=== PATIENT | male | born 1965 | race Caucasian/White ===

== ENCOUNTER 2023-04-18 19:39 | Emergency (ER) | payer OTHER, SELFPAY ==
[2023-04-18 19:39] VITALS: BMI 19.3
[2023-04-18 19:43] VITALS: BP 178/102
[2023-04-18] MEDS: TORADOL 30 MG IM (20:47)
[2023-04-18] MEDS: FLEXERIL 10 MG PO (20:47)
--- NOTE | 2023-04-18 21:09 | ED.GENMED ---
History of Present Illness
General
Chief Complaint: Musculo-Skeletal Complaint
Time Seen by Provider: 04/18/23 20:06
Travel History
Have you had any contact with someone who has COVID-19?: No
Do you have any symptoms of coronavirus? Fever > 100 degrees, chills, cough, shortness of breath, sore throat, loss of taste or smell, muscle aches, or headache?: No
History of Present Illness
History of Present Illness:
57-year-old male presents the emergency department for evaluation of bilateral neck pain developing this morning. He states that 3 to 4 days ago he struck his head on a piece of equipment, did not have any pain until this morning. Feels profound
stiffness. No radiating symptoms into the upper extremities, denies any paresthesias. No chest pain or shortness of breath. Took Advil without significant improvement
Review of Systems
Review of Systems
Allergies reviewed?: Yes
All Other Systems: ROS reviewed and negative except as documented in HPI and ROS
Phy Exam
Physical Exam
Physical Exam:
GEN: Well appearing, NAD, WDWN
HEENT: Oral mucosa moist, no scleral icterus
Cardiac: Regular rate
Lung: No respiratory distress, no tachypnea
MSK: No gross deformity or injuries. No midline cervical spine tenderness. Positive bilateral paraspinous muscular tenderness. Range of motion profoundly limited of the cervical spine due to pain. Bilateral upper extremity strength and sensation
is intact in all boone and symmetric
Skin: Good color, no pallor or jaundice, no rashes
Neuro: AO x3, moves all extremities freely
Psych: Calm, cooperative
Course
Orders/Labs/Results
Orders:
Orders
04/18/23 20:38
Cyclobenzaprine HCl [Flexeril] 10 mg PO NOW STA
Ketorolac [Toradol] 30 mg IM NOW STA
CR Cervical Spine 2 or 3 Vw Urgent
Reason For Exam: neck pain
Vital Signs
Initial and Last Documented VS:
Initial Vital Signs
Temp Pulse Resp BP Pulse Ox
98 F 78 22 178/102 100
04/18/23 19:43 04/18/23 19:43 04/18/23 19:43 04/18/23 19:43 04/18/23 19:43
Last Documented Vital Signs
Temp Pulse Resp BP Pulse Ox
98 F 78 22 178/102 100
04/18/23 19:43 04/18/23 19:43 04/18/23 19:43 04/18/23 19:43 04/18/23 19:43
MDM/Problems Addressed
MDM/Problems Addressed:
Patient's pain improved with supportive treatment emergency department. Due to the antecedent trauma x-rays were obtained which showed no evidence for cervical spine bony abnormality. His symptoms did improve, likely soft tissue injury. Discussed
supportive care
*Critical Care Note
Total Time (30-74mins, 75-104mins- exclusive of procedures): Not Applicable
ED Attending Note
-
Portions of this chart may have been created with voice recognition software.� Occasional wrong word or��sound alike� substitutions may have occurred due to the inherent limitations of voice recognition software.
Discharge Plan
Departure
Patient Disposition: Home (Routine Discharge)
Date of Disposition: 04/18/23
Time of Disposition: 22:45
Patient with high blood pressure during this ER visit?: No
Discharge Problem:
Cervical muscle strain
Instructions: Neck Sprain (DC)
Prescriptions:
New
methocarbamol 750 mg tablet
750 - 1,500 mg PO Q8H PRN (Reason: muscle spasm) Qty: 30 0RF
diclofenac sodium 75 mg tablet,delayed release (DR/EC)
75 mg PO BID PRN (Reason: Pain) Qty: 20 0RF
Referrals:
Shanda Cortez CRNP [Family Provider] -
Interventions
Interventions:
*Risk Screen - Suicide Last Done: 04/18/23 19:43
*General Assessment Last Done: 04/18/23 22:58
*Neglect/Abuse Screening Last Done: 04/18/23 19:43
ED- Fall Risk Assessment Last Done: 04/18/23 20:17
*ED COVID-19 Vaccine History Last Done: 04/18/23 22:58
*Nursing Disposition Last Done: 04/18/23 22:48
ED-Musculoskeletal Assessment Last Done: 04/18/23 20:17
Discharge Date and Time
Discharge Date/Time: 04/18/23 23:00
== END 2023-04-18 23:00 | disposition home or self-care (01) ==
LOC: EMR 19:39
PROVIDERS: EMERGENCY PHYSICIAN Emergency Medicine; FAMILY PHYSICIAN Nurse Practitioner Adult Health
DX: S16.1XXA Strain of muscle, fascia and tendon at neck level, initial encounter (principal); W22.8XXA Striking against or struck by other objects, initial encounter
CPT/HCPCS: 99284; 96372; 72040

== ENCOUNTER → 2023-04-24 08:06 | Outpatient (REF) | payer OTHER, SELFPAY | LOC: RCS 08:06 | PROVIDERS: ATTENDING PHYSICIAN Nurse Practitioner Adult Health | DX: I51.7 Cardiomegaly (principal) | CPT/HCPCS: 93306 ==

== ENCOUNTER 2023-06-28 19:17 | Emergency (ER) | payer OTHER, SELFPAY ==
[2023-06-28 19:24] VITALS: BP 136/80
[2023-06-28 19:51] LABS: % Basophils 0.5 % (0-2); % Eosinophils 2.7 % (0-6); % Immature Granulocytes 0.2 % (0-0.5); % Lymphocytes 24.5 % (20.5-51.1); % Monocytes 7.2 % (1.7-9.3); % Neutrophils 64.9 % (42.2-75.2); Absolute Eosinophils 0.2 10^3/uL (0-0.7); Absolute Lymphocytes 2.2 10^3/uL (1.2-3.4); Absolute Monocytes 0.6 10^3/uL (0.1-0.6); Absolute Neutrophils 5.7 10^3/uL (1.4-6.5); Hematocrit 42.4 % (39.0-52.0); Mean Corpuscular Volume 87.8 fL (80.0-94.0); Mean Platelet Volume 10.5 fL (7.4-10.4); Nucleated Red Blood Cells % 0 % (-); Platelet Count 238 10^3/uL (130-400); Red Blood Cell Count 4.83 10^6/uL (4.70-6.10); Red Cell Dist. Width 13.4 % (11.5-14.5); White Blood Cell Count 8.8 10^3/uL (4.8-10.8)
[2023-06-28 20:06] LABS: ALT (SGPT) 29 U/L (0-50); AST (SGOT) 40 U/L (17-59); Albumin 4.7 g/dl (3.5-5.0); Alkaline Phosphatase 56 U/L (38-126); Blood Urea Nitrogen 23 mg/dl (9-20); Calcium 10.3 mg/dl (8.4-10.2); Carbon Dioxide 27 mmol/L (22-30); Chloride 103 mmol/L (98-107); Glucose 89 mg/dl (70-99); Potassium 4.7 mmol/L (3.5-5.1); Sodium 136 mmol/L (135-145); Total Bilirubin 0.6 mg/dl (0.2-1.3); Total Protein 7.3 g/dl (6.3-8.2); eGFR > 60.00
--- NOTE | 2023-06-28 23:56 | ED.GENMED ---
History of Present Illness
General
Chief Complaint: Rectal Bleeding
Source: patient
Exam Limitations: none
Time Seen by Provider: 06/28/23 23:25
Travel History
Have you had any contact with someone who has COVID-19?: No
Do you have any symptoms of coronavirus? Fever > 100 degrees, chills, cough, shortness of breath, sore throat, loss of taste or smell, muscle aches, or headache?: No
History of Present Illness
History of Present Illness:
This is a 57 year old male that comes in with c/o black stool. States that he saw Dr. Kang on Wednesday. States that he is scheduled for a colonoscopy and endoscope in August. States that he has been taking Ibuprofen 1 tablet in the morning and one
at night for neck pain for several months. States that he was told to take Prilosec but he hasn't started this yet. Told that if he had any black stool to come to the ER. States that he got up at 2:30am to have a BM and it started out normal and
then he had some black stool. States that he has a slight headache. Denies any fever, chills, chest pain SOB, abd pain, nausea, vomiting, diarrhea, dizziness, urinary burning.
Past History
Past History
ED Past Medical History: None; Negative Asthma, HTN or Hypercholesterolemia
ED Past Surgical History: Orthopedic (Left shoulder surgery, ORIG right hand)
Social History
Tobacco: Non-smoker
Alcohol: Occasional
Personal:
Living: with family
Employment: Employed
Review of Systems
Review of Systems
All Other Systems: ROS reviewed and negative except as documented in HPI and ROS
Constitutional: Reports no symptoms; Denies fever or chills
EENT: Reports no symptoms
Respiratory: Reports no symptoms; Denies cough or trouble breathing
Cardiac: Reports no symptoms; Denies chest pain
ABD/GI: Reports black stools; Denies abdominal pain, nausea, vomiting or diarrhea
: Reports no symptoms; Denies dysuria, frequency or urgency
Musculoskeletal: Reports no symptoms
Skin: Reports no symptoms
Neurological: Reports headache (Slight); Denies dizzy
Psychiatric: Reports no symptoms
Phy Exam
General Physical Exam
General Presentation: well appearing and no apparent distress
General age: appears stated age
General Skin: warm and dry
General Habitus: normal
General Mental: alert
General Hydration: appears well hydrated
ENT Exam
ENT Exam: TM's normal, pharynx normal and neck supple
Eye Exam
Eye Exam: EOMI
Cardiovascular Exam
Cardiovascular Exam: regular rate/rhythm, no edema, no murmur and normal peripheral pulses
Pulmonary Exam
Pulmonary Exam: lungs clear, no respiratory distress, no rales, chest non tender, no crackles, no rhonchi, no wheezing and no cough
Gastrointestinal Exam
Gastrointestinal Exam: normal bowel sounds, non tender, soft, no organomegaly, no pulsatile mass, non distended and other (Rectal exam negative, no stool in the rectal valt)
Musculoskeletal Exam
Musculoskeletal Exam: full ROM and no edema
Skin Exam
Skin Exam: normal color, warm/dry, no rash and no petechia
Course
Orders/Labs/Results
Orders:
Orders
06/28/23 19:36
CMP [Comprehensive Metabolic Panel] Urgent
Complete Blood Count/With Diff Urgent
Abnormal Lab Results
06/28/23
19:36
MPV 10.5 H fL
(7.4-10.4)
BUN 23 H mg/dl
(9-20)
Calcium 10.3 H mg/dl
(8.4-10.2)
06/28/23 19:36
06/28/23 19:36
Dehydration. Otherwise normal labs
Vital Signs
Initial and Last Documented VS:
Initial Vital Signs
Temp Pulse Resp BP Pulse Ox
98.1 F 88 18 136/80 98
06/28/23 19:24 06/28/23 19:24 06/28/23 19:24 06/28/23 19:24 06/28/23 19:24
Last Documented Vital Signs
Temp Pulse Resp BP Pulse Ox
98.1 F 88 18 165/97 98
06/28/23 19:24 06/28/23 19:24 06/28/23 19:24 06/29/23 00:00 06/28/23 19:24
MDM/Problems Addressed
Differential Diagnosis Includes:
Upper GI bleeding, Ulcer
MDM/Problems Addressed:
This is a 57 year old male that comes in with c/o black stool. States that he move his bowels at 2:30am and it was normal and then black. States that he went a second time very little and again it was black. States that he was told to come to the
ER.
Will check labs. Message sent to Dr. Kang and await her response
Spoke with Dr. Kang. Will place patient on Protonix and have him follow up with the GI specialist. Patient to return with any concerns.
Chronic conditions affecting care:
NA
Acute Exacerbation and/or Progression of Chronic Illness:
NA
*Pulse Oximetry
Patient hypoxic: no
*EKG
Interpreted by ED Provider?: NA
Rate: EKG- N/A
*Bioinformatics Software Engineer Interpretation
Rate: Bioinformatics Software Engineer- N/A
*Critical Care Note
Total Time (30-74mins, 75-104mins- exclusive of procedures): Not Applicable
ED Attending Note
-
Portions of this chart may have been created with voice recognition software.� Occasional wrong word or��sound alike� substitutions may have occurred due to the inherent limitations of voice recognition software.
Discharge Plan
Departure
Patient Disposition: Home (Routine Discharge)
Date of Disposition: 06/29/23
Time of Disposition: 00:47
Patient with high blood pressure during this ER visit?: Yes
Condition: Good
Covid-19: Not Applicable
Discharge Problem:
Black stools
Instructions: BLOOD PRESSURE
Prescriptions:
New
pantoprazole [Protonix] 40 mg tablet,delayed release (DR/EC)
40 mg PO DAILY Qty: 30 0RF
No Action
methocarbamol 750 mg tablet
750 - 1,500 mg PO Q8H PRN (Reason: muscle spasm) Qty: 30 0RF
diclofenac sodium 75 mg tablet,delayed release (DR/EC)
75 mg PO BID PRN (Reason: Pain) Qty: 20 0RF
Referrals:
Kaur Kang MD [Active] - Follow up in 5-7 days
Shanda Cortez CRNP [Family Provider] -
Activity Restrictions/Additional Instructions:
As discussed, your blood work shows that you are dehydrated. Please increase your water intake to 8-8oz glasses daily. You have been given a prescription for Protonix. This will be sent to your Pharmacy. Please take this daily as prescribed. Follow
up with the GI Specialist as directed. IF YOU HAVE ABDOMINAL PAIN, INCREASED STOOLS PER DAY, DIZZINESS, OR YOU HAVE ANY OTHER CONCERNS PLEASE RETURN TO THE EMERGENCY ROOM
Interventions
Interventions:
*Risk Screen - Suicide Last Done: 06/28/23 19:24
*Neglect/Abuse Screening Last Done: 06/28/23 19:24
PD-Lhdilh-Sgxtgvglsq Assessment Last Done: 06/29/23 00:23
ED- Cardiac Assessment Last Done: 06/29/23 00:23
ED- Pulmonary Assessment Last Done: 06/29/23 00:23
Discharge Date and Time
Print Language: CONGOLESE
[2023-06-29] VITALS: BP 165/97
== END 2023-06-29 01:01 | disposition home or self-care (01) ==
LOC: EMR 19:17
PROVIDERS: Emergency Medicine; EMERGENCY PHYSICIAN Emergency Medicine; FAMILY PHYSICIAN Nurse Practitioner Adult Health
DX: K92.1 Melena (principal); M54.2 Cervicalgia; R51.9 Headache, unspecified; R03.0 Elevated blood-pressure reading, without diagnosis of hypertension; Z88.8 Allergy status to other drugs, medicaments and biological substances
CPT/HCPCS: 99283; 80053; 85025

== ENCOUNTER → 2023-08-11 16:05 | Outpatient (REF) | payer OTHER, SELFPAY | LOC: HWRAD 16:05 | PROVIDERS: ATTENDING PHYSICIAN Nurse Practitioner Adult Health | DX: Z01.89 Encounter for other specified special examinations (principal) | CPT/HCPCS: 70030 ==

== ENCOUNTER → 2023-09-06 06:25 | Day surgery (SDC) | payer OTHER, SELFPAY | LOC: GI 06:25 | PROVIDERS: ATTENDING PHYSICIAN Internal Medicine Gastroenterology | DX: Z12.11 Encounter for screening for malignant neoplasm of colon (principal); D12.0 Benign neoplasm of cecum; K57.30 Diverticulosis of large intestine without perforation or abscess without bleeding; K92.1 Melena; K44.9 Diaphragmatic hernia without obstruction or gangrene; K31.A0 Gastric intestinal metaplasia, unspecified | CPT/HCPCS: 45385; 43239; 88305; 88342 ==

== ENCOUNTER 2024-10-16 06:31 | Day surgery (SDC) | payer OTHER, SELFPAY | END 2024-10-16 14:30 | disposition home or self-care (01) | LOC: GI 06:31 | PROVIDERS: ATTENDING PHYSICIAN Internal Medicine Gastroenterology | DX: K22.70 Barrett's esophagus without dysplasia (principal); K22.89 Other specified disease of esophagus; K44.9 Diaphragmatic hernia without obstruction or gangrene; K31.A19 Gastric intestinal metaplasia without dysplasia, unspecified site | CPT/HCPCS: 43239; 88305; 88342 ==